=== PATIENT | female | born 1980 | race Caucasian/White ===

== ENCOUNTER 2016-12-06 10:21 | Emergency (ER) | payer MEDICAID ==
[~2016-12-06] VITALS: Ht 157.5 cm; Wt 89.9 kg
[~2016-12-06 10:21] MED LIST: FAMO20TA18; GLYB2.5T2 PO; ONDA8TAB83 PO; PREN1TAB49 PO
[2016-12-06 10:23] VITALS: Ht 157.5 cm; Wt 89.9 kg
[2016-12-06] MEDS ORDERED: ONDANSETRON (ODT) 4 MG TAB ODT STA (13:19)
--- NOTE | 2016-12-06 13:33 | ERD ---
ER Documentation Chief Complaint Date/Time DATE: 12/06/16 TIME: 13:28 Chief Complaint 7 WEEKS WITH VOMITING HPI 35 yo female comes in with nausea and vomiting one and off 1 week. Patient who is 2 last menstrual period was on October 18, 2016 comes in complaining of intermittent nausea vomiting for the past week. She reports up to 3-4 episodes of nonbloody nonbilious emesis. She denies any fever, chills, diarrhea. She denies pelvic pain, vaginal bleeding or flank pain. ROS All systems reviewed and are negative except as per history of present illness. Medications Home Meds Active Scripts Cephalexin* (Keflex*) 500 Mg Capsule, 500 MG PO TID for 7 Days, CAP Prov:YOHANNES MEZA PA-C 12/06/16 Metoclopramide* (Reglan*) 10 Mg Tablet, 10 MG PO Q6 Y for NAUSEA AND/OR VOMITING , #10 TAB Prov:YOHANNES MEZA PA-C 12/06/16 Reported Medications Glyburide* (Glyburide*) 2.5 Mg Tablet, 2.5 MG PO PM 05/22/12 Vits W-Ca,Fe,Fa(<1MG) () 1 Tab Tablet, 1 TAB PO 01/17/12 Famotidine* (Famotidine*) 20 Mg Tablet 10/29/11 Ondansetron Hcl* (Ondansetron Hcl*) 8 Mg Tablet, 8 MG PO Q6, 0 Refills 10/29/11 Allergies Allergies: Coded Allergies: No Known Allergy (Unverified , 05/22/12) PMhx/Soc Medical and Surgical Hx: pt denies Medical Hx, pt denies Surgical Hx History of Surgery: No Anesthesia Reaction: No Hx Neurological Disorder: No Hx Respiratory Disorders: No Hx Cardiac Disorders: No Hx Psychiatric Problems: No Hx Miscellaneous Medical Probl: No Hx Alcohol Use: No Hx Substance Use: No Hx Tobacco Use: No Smoking Status: Never smoker Physical Exam Vitals see nursing notes Physical Exam General: Well-developed, well-nourished. The patient appears in no acute distress. HEENT: Head is normocephalic, atraumatic. No scleral icterus. Pupils are equal , round, and reactive. Oral mucous membranes are moist. No pharyngeal erythema. Neck: Supple. Nontender. Lungs: Clear to auscultation. Normal air movement. Heart: Regular rate and rhythm. S1 and S2 are normal. No murmurs, gallops, or rubs. Abdomen: Soft, nontender, nondistended. Bowel sounds are normoactive. No CVA tenderness. Extremities: No clubbing or cyanosis. Normal pulses. Moving extremities x 4. No weakness. Neurologic: Alert and oriented 3. No focal deficits. Skin: Normal turgor. No rash or lesions. Results 24 hrs Laboratory Tests Test 12/06/16 13:32 White Blood Count 9.710^3/ul Red Blood Count 5.2510^6/ul Hemoglobin 14.5g/dl Hematocrit 43.6% Mean Corpuscular Volume 83.0fl Mean Corpuscular Hemoglobin 27.6pg Mean Corpuscular Hemoglobin Concent 33.3g/dl Red Cell Distribution Width 12.0% Platelet Count 51779^3/UL Mean Platelet Volume 9.5fl Neutrophils % 62.2% Lymphocytes % 29.8% Monocytes % 7.0% Eosinophils % 0.3% Basophils % 0.2% Nucleated Red Blood Cells % 0.0/100WBC Neutrophils # 6.010^3/ul Lymphocytes # 2.910^3/ul Monocytes # 0.710^3/ul Eosinophils # 0.010^3/ul Basophils # 0.010^3/ul Nucleated Red Blood Cells # 0.010^3/ul Urine Color YELLOW Urine Clarity SLIGHTLY CLOUDY Urine pH 6.0 Urine Specific [place] 1.020 Urine Ketones 3+ Urine Nitrite NEGATIVE Urine Bilirubin 1+ Urine Ictotest NEGATIVE Urine Urobilinogen 1.0 E.U./dL Urine Leukocyte Esterase 2+ Urine Microscopic RBC 2-5/HPF Urine Microscopic WBC 2-5/HPF Urine Epithelial Cells MODERATE Urine Bacteria MODERATE Urine Hemoglobin NEGATIVE Urine Glucose NEGATIVE% Urine Total Protein TRACE Sodium Level 137mmol/L Potassium Level 3.9mmol/L Chloride Level 98mmol/L Carbon Dioxide Level 27mmol/L Anion Gap 16 Blood Urea Nitrogen 16mg/dl Creatinine 0.64mg/dl Glucose Level 115mg/dl Calcium Level 10.1mg/dl Total Bilirubin 1.2mg/dl Direct Bilirubin 0.00mg/dl Indirect Bilirubin 1.2mg/dl Aspartate Amino Transf (AST/SGOT) 40IU/L Alanine Aminotransferase (ALT/SGPT) 72IU/L Alkaline Phosphatase 62IU/L Total Protein 9.0g/dl Albumin 5.1g/dl Globulin 3.90g/dl Albumin/Globulin Ratio 1.30 Beta HCG, Quantitative 35534.0mIU/ml Current Medications Medications (Trade) Dose Ordered Sig/Hao Route PRN Reason Start Time Stop Time Status Last Admin Dose Admin Ondansetron HCl 4 mg 4 mg ONCE STAT ODT 12/06/16 13:19 12/06/16 13:21 DC 12/06/16 13:28 Sodium Chloride (NS) 1,000 ml @ 1,000 mls/hr Q1H ONCE IV 12/06/16 16:00 12/06/16 16:59 DC 12/06/16 16:00 Diphenhydramine HCl (Benadryl) 25 mg ONCE ONCE IV 12/06/16 16:00 12/06/16 16:01 DC 12/06/16 16:01 Metoclopramide HCl (Reglan) 10 mg ONCE ONCE IV 12/06/16 16:00 12/06/16 16:01 DC 12/06/16 16:01 PROCEDURE: US OB. CLINICAL INDICATION: hyperemesis, size and dates TECHNIQUE: Transabdominal and transvaginal views of the pelvis were obtained. COMPARISON: No prior studies are available for comparison. FINDINGS: There is a single intrauterine gestation with a CRL measuring 0.8 cm, corresponding to a gestational age of 6 weeks and 5 days. The heart rate is noted at 125 bpm. There are hypoechoic fluid collections adjacent to the gestational sac, measuring 0.6 x 0.4 cm and 0.8 x 0.5 cm, consistent with subchorionic hemorrhage. The right ovary measures 2.9 x 2.1 x 2.8 cm. The left ovary measures 2.4 x 1.4 x 1.8 cm. No ovarian or adnexal mass lesion is seen. There is no free fluid. RPTAT: AA IMPRESSION: Single live intrauterine with an estimated gestational age of 6 weeks and 5 days, based on ultrasound measurements. Focal areas of subchorionic hemorrhage. Close follow-up is recommended. .Sandip Marcus MD, MD Date Time Electronically viewed and signed by .Sandip Marcus MD, MD on 12/06/2016 14: 10 .S/ CC: YOHANNES MEZA PA-C PROCEDURE: Right Upper Quadrant Ultrasound. CLINICAL INDICATION: Nausea, vomiting TECHNIQUE: Multiple real-time images were acquired of the patient's right upper quadrant abdomen and retroperitoneum utilizing a high resolution transducer. COMPARISON: None FINDINGS: The liver measures 13.4 cm, and demonstrates normal echogenicity. The main portal vein is patent with proper directional flow. There is no intrahepatic biliary ductal dilatation. The extrahepatic common bile duct measures 4 mm. The gallbladder is without stones, wall thickening, or pericholecystic fluid. The visualized pancreas is unremarkable. The right kidney measures 9.6 x 4.2 x 4.6 cm and demonstrates normal echotexture. There is no right renal calculus or hydronephrosis. The visualized abdominal aorta and IVC are grossly unremarkable. IMPRESSION: Unremarkable right upper quadrant abdominal ultrasound. No cholelithiasis or acute cholecystitis. Normal CBD. RPTAT: EE Physician Alcides Date Time Electronically viewed and signed by Physician Alcides on 12/06/2016 15:23 Procedures/MDM ER course: Patient was given Zofran ODT, after the gallbladder ultrasound the patient experienced nausea vomiting and therefore should an IV line was established and she was given a liter of normal saline and Reglan 10 mg IV with Benadryl 25 mg IV. MDM: 35-year-old female presents with nausea, vomiting, consistent with hyperemesis gravidarum and first trimester . This patient initially was given Zofran ODT however she had subsequently experienced one episode of emesis in the emergency department. Therefore she was given IV fluids including normal saline 1 L as well as Reglan 10 mg and Benadryl 25 mg IV. Patient's bilirubin was mildly elevated at 1.2, it was followed by a gallbladder ultrasound that does not show evidence of gallstones, or any acute hepatobiliary process. Reexamination of the patient was a normal benign abdominal examination, and she also reports that she is feeling much better at this time. Patient's labs are unremarkable, no signs of electrolyte abnormalities. Urine just showed 2+ leukocytes, given her nausea patient will be given a short course of antibiotics for a urinary tract infection. Her pelvic ultrasound shows a single live intrauterine , no adnexal masses. At this time she is feeling better, she is hemodynamically stable and is appropriate to be managed on an outpatient basis. Departure Diagnosis: Primary Impression: Hyperemesis gravidarum Additional Impression: First trimester Condition: YOHANNES Brand PA-C Dec 06, 2016 13:33 feeling better, she is hemodynamically stable and is appropriate to be managed on an outpatient basis. Departure Diagnosis: Primary Impression: Hyperemesis gravidarum Additional Impression: First trimester Condition: YOHANNES Brand PA-C Dec 06, 2016 13:33
[2016-12-06 13:41] LABS: ADD SCAN DIFF NO
[2016-12-06 13:43] LABS: BASOPHILS % 0.2 % (0.0-2.0); EOSINOPHILS % 0.3 % (0.0-7.0); HEMATOCRIT 43.6 % (37.0-47.0); HEMOGLOBIN 14.5 g/dl (12.0-16.0); LYMPHOCYTES # 2.9 10^3/ul (0.8-2.9); LYMPHOCYTES % 29.8 % (15.0-51.0); MEAN CORPUSCULAR HEMOGLOBIN 27.6 pg (29.0-33.0); MEAN CORPUSCULAR HGB CONC 33.3 g/dl (32.0-37.0); MEAN PLATELET VOLUME 9.5 fl (7.4-10.4); MONOCYTE # 0.7 10^3/ul (0.3-0.9); NEUTROPHILS % 62.2 % (39.0-77.0); PLATELET COUNT 253 10^3/UL (140-415); RED BLOOD COUNT 5.25 10^6/ul (4.20-5.40); WHITE BLOOD COUNT 9.7 10^3/ul (4.8-10.8)
[2016-12-06 13:44] LABS: ADD UMIC YES; URINE BILIRUBIN (Dip) 1+ (NEGATIVE); URINE BLOOD (Dip) NEGATIVE (NEGATIVE); URINE COLOR YELLOW (YELLOW); URINE GLUCOSE (Dip) NEGATIVE (NEGATIVE); URINE KETONES (Dip) 3+ (NEGATIVE); URINE LEUKOCYTE ESTERASE (Dip) 2+ (NEGATIVE); URINE NITRITE (Dip) NEGATIVE (NEGATIVE); URINE TOTAL PROTEIN (Dip) TRACE (NEGATIVE); URINE UROBILINOGEN (Dip) 1.0 E.U./dL (0.1-1.0)
[2016-12-06 14:05] LABS: BACTERIA,URINE MODERATE; ICTOTEST NEGATIVE (NEGATIVE)
[2016-12-06 14:10] LABS: ALBUMIN 5.1 g/dl (3.3-4.9); ALBUMIN/GLOBULIN RATIO 1.3; BILIRUBIN,INDIRECT 1.2 mg/dl (0-1.1); BILIRUBIN,TOTAL 1.2 mg/dl (0.2-1.3); CALCIUM 10.1 mg/dl (8.4-10.2); CREATININE 0.64 mg/dl (0.44-1.00); POTASSIUM 3.9 mmol/L (3.5-5.1)
--- NOTE | 2016-12-06 14:11 | RADRPT ---
PROCEDURE: US OB. CLINICAL INDICATION: hyperemesis, size and dates TECHNIQUE: Transabdominal and transvaginal views of the pelvis were obtained. COMPARISON: No prior studies are available for comparison. FINDINGS: There is a single intrauterine gestation with a CRL measuring 0.8 cm, corresponding to a gestational age of 6 weeks and 5 days. The heart rate is noted at 125 bpm. There are hypoechoic fluid collections adjacent to the gestational sac, measuring 0.6 x 0.4 cm and 0.8 x 0.5 cm, consistent with subchorionic hemorrhage. The right ovary measures 2.9 x 2.1 x 2.8 cm. The left ovary measures 2.4 x 1.4 x 1.8 cm. No ovarian or adnexal mass lesion is seen. There is no free fluid. RPTAT: AA IMPRESSION: Single live intrauterine with an estimated gestational age of 6 weeks and 5 days, based on ultrasound measurements. Focal areas of subchorionic hemorrhage. Close follow-up is recommended. .Sandip Marcus MD, MD Date Time Electronically viewed and signed by .Sandip Marcus MD, on 12/06/2016 14:10 .S/
--- NOTE | 2016-12-06 15:24 | RADRPT ---
PROCEDURE: Right Upper Quadrant Ultrasound. CLINICAL INDICATION: Nausea, vomiting TECHNIQUE: Multiple real-time images were acquired of the patient's right upper quadrant abdomen a nd retroperitoneum utilizing a high resolution transducer. COMPARISON: None FINDINGS: The liver measures 13.4 cm, and demonstrates normal echogenicity. The main portal vein is patent wit h proper directional flow. There is no intrahepatic biliary ductal dilatation. The extrahepatic comm on bile duct measures 4 mm. The gallbladder is without stones, wall thickening, or pericholecystic fluid. The visualized pancreas is unremarkable. The right kidney measures 9.6 x 4.2 x 4.6 cm and demonstrates normal echotexture. There is no right renal calculus or hydronephrosis. The visualized abdominal aorta and IVC are grossly unremarkable. IMPRESSION: Unremarkable right upper quadrant abdominal ultrasound. No cholelithiasis or acute cholecystitis. Normal CBD. RPTAT: EE Physician Alcides Date Time Electronically viewed and signed by Physician Alcides on 12/06/2016 15:23 /
[2016-12-06] MEDS ORDERED: SOD CHLORIDE 0.9% 1,000 ML IV ONE (16:00)
[2016-12-06] MEDS ORDERED: METOCLOPRAMIDE 10 MG INJ IV ONE (16:00)
[2016-12-06] MEDS ORDERED: DIPHENHYDRAMINE 50 MG INJ IV ONE (16:00)
[2016-12-06] MEDS ORDERED: CEPH-443 PO (16:30)
[2016-12-06] MEDS ORDERED: METO10TA92 PO (16:30)
[2016-12-06 17:21] VITALS: BP 127/65; PULSE 75; RESP 19; TEMP 98.6
== END 2016-12-06 17:23 | disposition home or self-care (01) ==
LOC: FTE 10:21
DX: O21.0 Mild hyperemesis gravidarum (principal); Z3A.01 Less than 8 weeks gestation of pregnancy
CPT/HCPCS: 76705; 76801; 76817; 80053; 81001; 84702; 85025; 86900; 86901; J1200; J2765; J7030; Z7610; 36415; 81003; 96374; 96375

== ENCOUNTER 2017-03-01 17:58 | Emergency (ER) | payer MEDICAID ==
[~2017-03-01] VITALS: Ht 157.5 cm; Wt 92.5 kg
[~2017-03-01 17:58] MED LIST changes: +CEPH-443 PO; +METO10TA92 PO
[2017-03-01 18:00] VITALS: Ht 157.5 cm; Wt 92.5 kg
[2017-03-01 18:50] LABS: ADD UMIC NO; UR ASCORBIC ACID NEGATIVE (NEGATIVE); UR BILIRUBIN (Dip) NEGATIVE (NEGATIVE); UR BLOOD (Dip) NEGATIVE (NEGATIVE); UR CLARITY CLEAR (CLEAR); UR COLOR YELLOW (YELLOW); UR GLUCOSE (Dip) NEGATIVE (NEGATIVE); UR KETONES (Dip) NEGATIVE (NEGATIVE); UR LEUKOCYTE ESTERASE (Dip) NEGATIVE Leu/ul (NEGATIVE); UR NITRITE (Dip) NEGATIVE (NEGATIVE); UR TOTAL PROTEIN (Dip) NEGATIVE (NEGATIVE); UR UROBILINOGEN (Dip) NEGATIVE (NEGATIVE)
[2017-03-01 19:20] LABS: BASOPHILS % 0.1 % (0.0-2.0); EOSINOPHILS # 0.1 10^3/ul (0.0-0.5); EOSINOPHILS % 1.1 % (0.0-7.0); HEMATOCRIT 35.3 % (37.0-47.0); HEMOGLOBIN 11.4 g/dl (12.0-16.0); LYMPHOCYTES # 2.8 10^3/ul (0.8-2.9); LYMPHOCYTES % 33.1 % (15.0-51.0); MEAN CORPUSCULAR HEMOGLOBIN 27.5 pg (29.0-33.0); MEAN CORPUSCULAR HGB CONC 32.3 g/dl (32.0-37.0); MEAN CORPUSCULAR VOLUME 85.1 fl (82.0-101.0); MEAN PLATELET VOLUME 10.1 fl (7.4-10.4); MONOCYTE # 0.7 10^3/ul (0.3-0.9); MONOCYTES % 8.2 % (0.0-11.0); NEUTROPHIL # 4.8 10^3/ul (1.6-7.5); NEUTROPHILS % 56.6 % (39.0-77.0); PLATELET COUNT 206 10^3/UL (140-415); RED BLOOD COUNT 4.15 10^6/ul (4.20-5.40); RED CELL DISTRIBUTION WIDTH 13.8 % (11.5-14.5); WHITE BLOOD COUNT 8.5 10^3/ul (4.8-10.8)
--- NOTE | 2017-03-01 19:49 | RADRPT ---
PROCEDURE: US OB. CLINICAL INDICATION: . Vaginal bleeding. TECHNIQUE: Multiple sonographic images of the uterus were obtained. The images were revi ewed on a PACS workstation. COMPARISON: No prior studies are available for comparison. FINDINGS: There is a single live intrauterine gestation. heart rate is 144 beats per minute. Measurements were made in order to determine age. The results are as follows: BPD = 4.55 cm. HC = 16.57 cm. AC = 13.42 cm. FL = 2.73 cm. Estimated weight is 255 +/- 38 grams. LMP growth percentile is 24 %. Maximum vertical pocket of amniotic fluid is 4.6 cm. Menstrual age by ultrasound dates is 19 weeks 0 days. The estimated date of delivery is 07/26/2017. Position is cephalic and placenta is anterior grade 0. There is no evidence for an abruption or plac enta previa. IMPRESSION: 1. Single live intrauterine gestation of 19 weeks 0 days menstrual age by ultrasound dates. 2. The estimated date of delivery is 07/26/2017. 3. Normal anterior placenta with no abruption or previa. RPTAT: QQ .Balaji Cruz MD, Date Time Electronically viewed and signed by .Balaji Cruz MD, on 03/01/2017 19:49 .R/
[2017-03-01 21:48] VITALS: BP 120/81; PULSE 89; RESP 16; TEMP 98
--- NOTE | 2017-03-01 23:10 | ERD ---
ER Documentation Chief Complaint Date/Time DATE: 03/01/17 TIME: 23:02 Chief Complaint VAG BLEED , ONSET TODAY , 19 WEEKS 2 DAYS PREG , LMP 11/18/16 HPI 36 year old female patient who is who presents to the ED complaining of slight vaginal bleeding that started this morning. States that when she wipes, she sees some slight vaginal bleeding however has not had to change any pads. Patient's LMP is 10/18/16. Denies dysuria, urgency, frequency, flank pain, abdominal pain, nausea, vomiting. Denies any chest pain, shortness of breath. Reports that her NEEDLE LOOM OPERATOR is Dr. Garvin. Denies any abdominal or pelvic pain. ROS All systems reviewed and are negative except as per history of present illness. Medications Home Meds Active Scripts Cephalexin* (Keflex*) 500 Mg Capsule, 500 MG PO TID for 7 Days, CAP Prov:YOHANNES MEZA PA-C 12/06/16 Metoclopramide* (Reglan*) 10 Mg Tablet, 10 MG PO Q6 Y for NAUSEA AND/OR VOMITING , #10 TAB Prov:YOHANNES MEZA PA-C 12/06/16 Reported Medications Glyburide* (Glyburide*) 2.5 Mg Tablet, 2.5 MG PO PM 05/22/12 Vits W-Ca,Fe,Fa(<1MG) () 1 Tab Tablet, 1 TAB PO 01/17/12 Famotidine* (Famotidine*) 20 Mg Tablet 10/29/11 Ondansetron Hcl* (Ondansetron Hcl*) 8 Mg Tablet, 8 MG PO Q6, 0 Refills 10/29/11 Allergies Allergies: Coded Allergies: No Known Allergy (Unverified , 03/01/17) PMhx/Soc Medical and Surgical Hx: pt denies Medical Hx, pt denies Surgical Hx History of Surgery: No Anesthesia Reaction: No Hx Neurological Disorder: No Hx Respiratory Disorders: No Hx Cardiac Disorders: No Hx Psychiatric Problems: No Hx Miscellaneous Medical Probl: No Hx Alcohol Use: No Hx Substance Use: No Hx Tobacco Use: No Smoking Status: Never smoker Physical Exam Vitals Vital Signs Date Time Temp Pulse Resp B/P Pulse Ox O2 Delivery O2 Flow Rate FiO2 03/01/17 21:48 98.0 89 16 120/81 98 Room Air 03/01/17 18:00 98.1 85 18 134/72 98 Physical Exam Const: [id number], well-nourished. In no acute distress. Head: Atraumatic, normocephalic Eyes: Normal Conjunctiva without injection. No purulent discharge. ENT: Normal external ear, nose. Moist oropharynx without tonsillar exudates. Non -erythematous pharynx. Uvula midline. No drooling. No trismus. Neck: No cervical midline tenderness. Full range of motion. No meningismus. No cervical lymphadenopathy. No JVD. Resp: Clear to auscultation bilaterally. No wheezing, rhonchi, rales, or crackles. No accessory muscle use. No retractions. Cardio: Regular rate and rhythm. No murmurs, rubs or gallops. Abd: Soft, nontender, non distended. Normal bowel sounds. No palpable masses. No rebound tenderness. No guarding. Negative McBurney's point. Negative psoas sign. Negative obturator sign. Skin: No petechiae or rashes Back: No midline tenderness. No CVA tenderness. Ext: No cyanosis, or edema. Neur: Awake and alert. Normal gait. Normal coordination. Psych: Normal Mood and Affect Results 24 hrs Laboratory Tests Test 03/01/17 18:39 03/01/17 18:40 White Blood Count 8.510^3/ul Red Blood Count 4.1510^6/ul Hemoglobin 11.4g/dl Hematocrit 35.3% Mean Corpuscular Volume 85.1fl Mean Corpuscular Hemoglobin 27.5pg Mean Corpuscular Hemoglobin Concent 32.3g/dl Red Cell Distribution Width 13.8% Platelet Count 05704^3/UL Mean Platelet Volume 10.1fl Neutrophils % 56.6% Lymphocytes % 33.1% Monocytes % 8.2% Eosinophils % 1.1% Basophils % 0.1% Nucleated Red Blood Cells % 0.0/100WBC Neutrophils # 4.810^3/ul Lymphocytes # 2.810^3/ul Monocytes # 0.710^3/ul Eosinophils # 0.110^3/ul Basophils # 0.010^3/ul Nucleated Red Blood Cells # 0.010^3/ul Beta HCG, Quantitative 30537.0mIU/ml Urine Color YELLOW Urine Clarity CLEAR Urine pH 7.0 Urine Specific [place] 1.010 Urine Ketones NEGATIVEmg/dL Urine Nitrite NEGATIVEmg/dL Urine Bilirubin NEGATIVEmg/dL Urine Urobilinogen NEGATIVEmg/dL Urine Leukocyte Esterase NEGATIVELeu/ul Urine Hemoglobin NEGATIVEmg/dL Urine Glucose NEGATIVEmg/dL Urine Total Protein NEGATIVEmg/dl Procedures/MDM This is a 36-year-old female patient who is a presents the ED complaining of vaginal bleeding. Patient is afebrile and nontoxic-appearing. Patient has normal vital signs. An ultrasound, beta-hCG, CBC, type and RH, UA was ordered to evaluate patient. CBC: No evidence of severe infection. Hbg 11.4 Urine: No elevation in nitrites, leukocyte esterase, hematuria. No evidence of UTI Rh: O positive No indication for Rhogam at this time. beta Hc PROCEDURE: US OB. CLINICAL INDICATION: . Vaginal bleeding. TECHNIQUE: Multiple sonographic images of the uterus were obtained. The images were reviewed on a PACS workstation. COMPARISON: No prior studies are available for comparison. FINDINGS: There is a single live intrauterine gestation. heart rate is 144 beats per minute. Measurements were made in order to determine age. The results are as follows: BPD = 4.55 cm. HC = 16.57 cm. AC = 13.42 cm. FL = 2.73 cm. Estimated weight is 255 +/- 38 grams. LMP growth percentile is 24 %. Maximum vertical pocket of amniotic fluid is 4.6 cm. Menstrual age by ultrasound dates is 19 weeks 0 days. The estimated date of delivery is 07/26/2017. Position is cephalic and placenta is anterior grade 0. There is no evidence for an abruption or placenta previa. IMPRESSION: 1. Single live intrauterine gestation of 19 weeks 0 days menstrual age by ultrasound dates. 2. The estimated date of delivery is 07/26/2017. 3. Normal anterior placenta with no abruption or previa. Patient is 19 weeks and has a single live intrauterine gestation. Patient's bleeding symptoms have stabilized while in the department. Low suspicion for symptomatic anemia, ectopic , sepsis, PID, appendicitis, ovarian torsion, tubo-ovarian abscess, surgical abdomen, or other emergent conditions. Patient was educated that there is a risk for threatened . Patient to follow up with NEEDLE LOOM OPERATOR in 2 days for further evaluation and treatment. Patient is to return sooner to the ED for any worsening symptoms. Patient's questions were answered. Patient understood and agreed with discharge plan. Departure Diagnosis: Primary Impression: Vaginal bleeding in patient at less than 20 weeks ges... Condition: Stable Patient Instructions: : Your Second Trimester Changes, Bleeding During Early Referrals: BETTY GARVIN MD (PCP) [facility] YOU HAVE RECEIVED A MEDICAL SCREENING EXAM AND THE RESULTS INDICATE THAT YOU DO NOT HAVE A CONDITION THAT REQUIRES URGENT TREATMENT IN THE EMERGENCY DEPARTMENT. FURTHER EVALUATION AND TREATMENT OF YOUR CONDITION CAN WAIT UNTIL YOU ARE SEEN IN YOUR DOCTORS OFFICE WITHIN THE NEXT 1-2 DAYS. IT IS YOUR RESPONSIBILITY TO MAKE AN APPOINTMENT FOR FOLOW-UP CARE. IF YOU HAVE A PRIMARY DOCTOR --you should call your primary doctor and schedule an appointment IF YOU DO NOT HAVE A PRIMARY DOCTOR YOU CAN CALL OUR PHYSICIAN REFERRAL HOTLINE AT IF YOU CAN NOT AFFORD TO SEE A PHYSICIAN YOU CAN CHOSE FROM THE FOLLOWING [facility] [address] [facility] [address] [facility] [address] [facility] [address] [facility] [address] [facility] [facility]. [address] [facility] [facility] YOU HAVE RECEIVED A MEDICAL SCREENING EXAM AND THE RESULTS INDICATE THAT YOU DO NOT HAVE A CONDITION THAT REQUIRES URGENT TREATMENT IN THE EMERGENCY DEPARTMENT. FURTHER EVALUATION AND TREATMENT OF YOUR CONDITION CAN WAIT UNTIL YOU ARE SEEN IN YOUR DOCTORS OFFICE WITHIN THE NEXT 1-2 DAYS. IT IS YOUR RESPONSIBILITY TO MAKE AN APPOINTMENT FOR FOLOW-UP CARE. IF YOU HAVE A PRIMARY DOCTOR --you should call your primary doctor and schedule and appointment IF YOU DO NOT HAVE A PRIMARY DOCTOR YOU CAN CALL OUR PHYSICIAN REFERRAL HOTLINE AT . IF YOU CAN NOT AFFORD TO SEE A PHYSICIAN YOU CAN CHOSE FROM THE FOLLOWING [facility] INSTITUTIONS: [facility] [address] [place] [address] [facility] [address] [place] [address] [facility] [address] [place] [address] [facility] URGENT CARE/SPECIALTIES Additional Instructions: Llame al Obstetricia y Ginecologa tamara sherwin BETHANY PARA DENTRO DE 2-3 GALLEGOS.Dgale a la secretaria que nosotros le instruimos hacer esta bethany.Avise o llame si vasquez condicin se empeora antes de la bethany. Regresa aqui si peor o no mejor. DYLAN HELLER PA-C Mar 01, 2017 23:10 condicin se empeora antes de la bethany. Regresa aqui si peor o no mejor. DYLAN HELLER PA-C Mar 01, 2017 23:10
== END 2017-03-01 21:52 | disposition home or self-care (01) ==
LOC: FTE 17:58
DX: O20.9 Hemorrhage in early pregnancy, unspecified (principal); R10.2 Pelvic and perineal pain; Z3A.19 19 weeks gestation of pregnancy
CPT/HCPCS: 76805; 81003; 84702; 85025; 86900; 86901; Z7502

== ENCOUNTER 2017-04-15 14:10 | Outpatient (CLI) | payer MEDICAID ==
[~2017-04-15] VITALS: Ht 157.5 cm; Wt 93.2 kg
[2017-04-15] MEDS ORDERED: PRENAT PO (14:29)
[2017-04-15 14:30] VITALS: BP 119/65; PULSE 88; RESP 18; Ht 157.5 cm; Wt 93.2 kg
--- NOTE | 2017-04-15 16:41 | RADRPT ---
PROCEDURE: Limited obstetric ultrasound CLINICAL INDICATION: Pain TECHNIQUE: Multiple transverse and longitudinal grayscale images of the pelvis were obtained bahena sabdominally and transvaginally.. COMPARISON: 03/11/2017 FINDINGS: The cervix is closed with a length of 4.2 cm. There is a single viable intrauterine gestation. Cardiac activity is present with 152 beats per min clifford. There is a breech presentation. The placenta is anterior. There is no evidence for an abruption or placenta previa. RPTAT: AA IMPRESSION: Cervix length measures 4.2 cm. .Sandip Marcus MD, Date Time Electronically viewed and signed by .Sandip Marcus MD, on 04/15/2017 16:41 .S/
[2017-04-15 17:11] LABS: ADD UMIC NO; UR ASCORBIC ACID NEGATIVE (NEGATIVE); UR BACTERIA MODERATE /HPF (NONE SEEN); UR BILIRUBIN (Dip) NEGATIVE (NEGATIVE); UR BLOOD (Dip) NEGATIVE (NEGATIVE); UR CLARITY SLIGHTLY CLOUDY (CLEAR); UR COLOR YELLOW (YELLOW); UR GLUCOSE (Dip) NEGATIVE (NEGATIVE); UR KETONES (Dip) 1+ mg/dL (NEGATIVE); UR LEUKOCYTE ESTERASE (Dip) NEGATIVE Leu/ul (NEGATIVE); UR NITRITE (Dip) NEGATIVE (NEGATIVE); UR RBC 1 /HPF (0-5); UR SPECIFIC GRAVITY (Dip) 1.006 (1.003-1.030); UR SQUAMOUS EPITHELIAL CELL FEW /HPF (FEW); UR TOTAL PROTEIN (Dip) NEGATIVE (NEGATIVE); UR UROBILINOGEN (Dip) NEGATIVE (NEGATIVE)
--- NOTE | 2017-04-15 17:44 | TRIAGE ---
OB Triage Datetime Report Generated by CPN: 04/15/2017 17:43 Datetime: 04/15/2017 16:12 Stage of : OB Triage Maternal Assessment Level of Consciousness: Fully Conscious Labor Evaluation Frequency: NONE Monitor Mode: External Resting Tone Study [place]: Relaxed Heart Rate FHR Baseline Rate: 145 Monitor Mode: External US Variability: Moderate 6-25 bpm Accelerations: 15X15 Decelerations: None Pain Assessment Pain Scale: 0 Pain Goal: 3 Membrane Status: Intact Vaginal Bleeding: None Datetime: 04/15/2017 15:37 Vaginal Exam Dilatation (cms): 0.0 Exam By: FOROOHAR Datetime: 04/15/2017 15:20 Stage of : OB Triage Maternal Assessment Level of Consciousness: Fully Conscious Labor Evaluation Frequency: NONE Monitor Mode: External Resting Tone Study [place]: Relaxed Heart Rate FHR Baseline Rate: 145 Monitor Mode: External US Variability: Moderate 6-25 bpm Accelerations: 15X15 Decelerations: None Pain Assessment Pain Scale: 0 Pain Goal: 3 Membrane Status: Intact Vaginal Bleeding: None Datetime: 04/15/2017 14:26 Assessment Type: Triage Maternal Assessment Level of Consciousness: Fully Conscious DTR's/Clonus: DTRs 2+; No Clonus Headache: Denies Blurred Vision: No Respiratory Effort: Unlabored; Regular Rhythm; Equal Expansion Breath Sounds, Left: Clear and Equal Breath Sounds, Right: Clear and Equal Nausea/Vomiting: Denies RUQ Epigastric Pain: Denies Lower Extremities Edema: None Degree: None Upper Extremities Edema: None Degree: None Facial Edema: None Fall Risk Assessment History of Falling: (0) No Secondary Diagnosis: (0) No Ambulatory Aid: (0) Bedrest/Nurse Assist IV Therapy: (0) No Gait: (0) Normal/Bedrest/Immobile Mental Status: (0) Oriented to Own Ability Fall Score: 0 Fall Risk Score Definition: No Risk: No action required Datetime: 04/15/2017 14:25 EGA: 25.5 Datetime: 04/15/2017 14:21 Time of Arrival: 04/15/2017 13:56 Arrived By: Wheelchair Arrived From: Home Chief Complaint: PT HERE C/O SPOTTING Movement: Present Contractions: Denies/Absent Rupture of Membranes: Denies Vaginal Bleeding: Scant Vaginal Discharge: Denies Recent Sexual Intercouse: Denies Abdominal Trauma: Not Applicable Patient Complaints: None Time Provider Notified: 04/15/2017 15:30 Provider Notified: FOROOHAR Initial Plan: CVL/PLACENTA/UA Datetime: 04/15/2017 14:17 Monitor Mode: External Monitor Mode: External US
--- NOTE | 2017-04-15 17:53 | CONS ---
Date/Time of Note Date/Time of Note DATE: 04/15/17 TIME: 17:45 Consultation Date/Type/Reason Admit Date/Time April 15, 2017 OB triage consult This patient is a 36 years old 2 para 1 with estimated date of confinement of July 24, 2017 which makes her 25 weeks and 5 days now. She came to triage clinic complaining of vaginal spotting since morning. On examination she is somewhat overweight patient whose weight is 93.2 kg Her general vital signs appears to be normal with blood pressure of 119/65 pulse rate 88,, respiration 18, temperature 98.7, and oxygen saturation of 99% at room temperature. Her abdomen is soft we do not feel very many contractions heart tone is normal. On pelvic examination cervix is closed thick and posterior no evidence of a blood inside the vagina she does have some hemorrhoidal tags around the anus which could have been caused some vaginal spotting that she is currently claiming. Laboratory Tests Test 04/15/17 14:10 Urine Color YELLOW Urine Clarity SLIGHTLY CLOUDY Urine pH 5.0 Urine Specific [place] 1.006 Urine Ketones 1+mg/dL Urine Nitrite NEGATIVEmg/dL Urine Bilirubin NEGATIVEmg/dL Urine Urobilinogen NEGATIVEmg/dL Urine Leukocyte Esterase NEGATIVELeu/ul Urine Microscopic RBC 1/HPF Urine Microscopic WBC 3/HPF Urine Squamous Epithelial Cells FEW/HPF Urine Bacteria MODERATE/HPF Urine Hemoglobin NEGATIVEmg/dL Urine Glucose NEGATIVEmg/dL Urine Total Protein NEGATIVEmg/dl Constitutional: No chills, No diaphoresis, No disoriented, No febrile, No improved, No no complaints, No other, No poor po, No requiring IVF, No requiring O2 Eyes: No discharge, No no complaints, No other, No pain, No redness, No visual change ENT: No bleeding, No congestion, No discharge, No dysphagia, No no complaints, No other, No pain, No sore throat Respiratory: No cough, No no complaints, No other, No pain, No pleuritic pain, No shortness of breath, No sputum, No wheezing Cardiovascular: No chest pain, No edema, No lightheadedness, No no complaints, No orthopenea, No other, No palpitations, No paroxysmal nocturnal dyspnea Gastrointestinal: No blood, No constipation, No decreased appetite, No diarrhea , No flatus, No nausea, No no complaints, No other, No pain, No passing stool, No vomiting Genitourinary: other (On pelvic examination as I mentioned the cervix is closed no evidence of vaginal bleeding), No bleeding, No discharge, No dysuria, No flank pain, No hematuria, No no complaints Additional Comments On ultrasound study the report is single live intrauterine gestation with in cephalic presentation with cardiac rate of 146/min the placenta located anteriorly . Amniotic fluid index is 13.2 cm and the biophysical profile is 8/8. Her cervix was closed with a length of 4.2 cm fetus was in breech presentation. With these negative finding the patient was advised regarding her condition she was discharged home to be followed in in her OB clinic. On to return if any real vaginal bleeding or any sign of labor. Social History Smoking Status: Never smoker Exam/Review of Systems Vital Signs Vitals Vital Signs Date Time Temp Pulse Resp B/P Pulse Ox O2 Delivery O2 Flow Rate FiO2 04/15/17 14:30 98.7 88 18 119/65 99 Room Air Results Results 24 hrs Laboratory Tests Test 04/15/17 14:10 Urine Color YELLOW Urine Clarity SLIGHTLY CLOUDY A Urine pH 5.0 Urine Specific Hale 1.006 Urine Ketones 1+ H Urine Nitrite NEGATIVE Urine Bilirubin NEGATIVE Urine Urobilinogen NEGATIVE Urine Leukocyte Esterase NEGATIVE Urine Microscopic RBC 1 Urine Microscopic WBC 3 Urine Squamous Epithelial Cells FEW Urine Bacteria MODERATE Urine Hemoglobin NEGATIVE Urine Glucose NEGATIVE Urine Total Protein NEGATIVE REJI ARMIJO MD Apr 15, 2017 17:53
== END 2017-04-15 17:55 | disposition home or self-care (01) ==
LOC: OBT 14:10 → L-D 14:10 → OBT 17:55
PROVIDERS: ATTEND Obstetrics & Gynecology
DX: O20.8 Other hemorrhage in early pregnancy (principal); O09.523 Supervision of elderly multigravida, third trimester; Z3A.25 25 weeks gestation of pregnancy
CPT/HCPCS: 76817; 81001; Z7500; 81003; G0463

== ENCOUNTER 2017-05-12 15:48 | Outpatient (CLI) | payer MEDICAID ==
[~2017-05-12] VITALS: Ht 154.9 cm; Wt 96.6 kg
[~2017-05-12 15:48] MED LIST changes: -CEPH-443 PO; -FAMO20TA18; -GLYB2.5T2 PO; -METO10TA92 PO; -ONDA8TAB83 PO; -PREN1TAB49 PO; +PRENAT PO
[2017-05-12 16:11] VITALS: BP 116/55; PULSE 90; Ht 154.9 cm; Wt 96.6 kg
--- NOTE | 2017-05-12 17:08 | RADRPT ---
PROCEDURE: US biophysical profile. CLINICAL INDICATION: Decreased motion. TECHNIQUE: Multiple sonographic images of the uterus were obtained. The images were revi ewed on a PACS workstation. COMPARISON: No prior studies are available for comparison. FINDINGS: There is a single live intrauterine gestation. heart rate is 150 beats per minute. The position is breech. The placenta is anterior grade 1 with no abruption or previa. The LEILANI is 10.0 cm. (Normal = 5-20 cm.) Breathing Movement: 2 Gross Body Movement: 2 Tone: 2 Qualitative Amniotic Fluid Volume: 2 TOTAL: 8 IMPRESSION: 1. The biophysical score is 8/8. RPTAT: QQ .Balaji Cruz MD, MD Date Time Electronically viewed and signed by .Balaji Cruz MD, on 05/12/2017 17:08 .R/
--- NOTE | 2017-05-12 18:53 | QN ---
Documentation Comment iupo 29 weeks DFM vss us wnl nst raeatice a/p iup 29 weeks DFM resolved dc home ANA ZUNIGA MD May 12, 2017 18:53
== END 2017-05-12 18:15 | disposition home or self-care (01) ==
LOC: OBT 15:48 → L-D 15:50 → OBT 18:15
PROVIDERS: ATTEND Obstetrics & Gynecology
DX: O36.8130 Decreased fetal movements, third trimester, not applicable or unspecified (principal); Z3A.29 29 weeks gestation of pregnancy
CPT/HCPCS: 76818; Z7500; G0463

== ENCOUNTER 2017-06-02 15:37 | Outpatient (CLI) | payer MEDICAID ==
[~2017-06-02] VITALS: Ht 157.5 cm; Wt 97.3 kg
[2017-06-02 16:28] VITALS: Ht 157.5 cm; Wt 97.3 kg
[2017-06-02 16:30] VITALS: BP 116/66; PULSE 106; RESP 16
--- NOTE | 2017-06-02 18:24 | RADRPT ---
PROCEDURE: US OB. CLINICAL INDICATION: SROM , pain TECHNIQUE: Transabdominal views of the pelvis are available for review. COMPARISON: 05/12 FINDINGS: There is a single intrauterine gestation in a vertex position. The heart rate is noted at 146 bpm. The placenta is anterior. The LEILANI measures 15 cm. RPTAT: AA IMPRESSION: Normal LEILANI. .Sandip Marcus MD, MD Date Time Electronically viewed and signed by .Sandip Marcus MD, on 06/02/2017 18:23 .S/
--- NOTE | 2017-06-02 18:58 | QN ---
Documentation Comment iup 32 weeks co of lof vss exam wnl ROM negative LEILANI wnl a/p iup 32 weeks false labor ANA ZUNIGA MD Jun 02, 2017 18:58
== END 2017-06-02 19:10 | disposition home or self-care (01) ==
LOC: OBT 15:37 → OBG 15:42 → OBT 19:10
PROVIDERS: ATTEND Obstetrics & Gynecology
DX: O26.893 Other specified pregnancy related conditions, third trimester (principal); O09.523 Supervision of elderly multigravida, third trimester; Z3A.32 32 weeks gestation of pregnancy
CPT/HCPCS: 76815; 84112; Z7500; G0463

== ENCOUNTER 2017-07-21 23:50 | Outpatient (CLI) | payer MEDICAID ==
[~2017-07-21] VITALS: Ht 154.9 cm; Wt 102.4 kg
--- NOTE | 2017-07-22 01:59 | RADRPT ---
PROCEDURE: OB ultrasound for biophysical profile CLINICAL INDICATION: Contractions. TECHNIQUE: Multiple sonographic images of the gravid uterus performed. The images were reviewed on a PACS workstation. COMPARISON: 05/12/2017 FINDINGS: A single live intrauterine is identified with heart rate of 159 bpm. Fet us is in a cephalic presentation. Placenta is located anterior. Biophysical profile: breathing movement = 2/2 tone = 2/2 motion = 2/2 LEILANI = 2/2 LEILANI = 8.2 cm. IMPRESSION: 1. Single live intrauterine gestation. 2. Biophysical profile = 8/8. 3. LEILANI = 8.2 cm. RPTAT: HMVK .Zac Elliott MD, Date Time Electronically viewed and signed by .Zac Elliott MD, on 07/22/2017 01:58 .K/
[2017-07-22 02:47] VITALS: BP 121/73; PULSE 80; RESP 16; Ht 154.9 cm; Wt 102.4 kg
--- NOTE | 2017-07-22 03:03 | TRIAGE ---
OB Triage Datetime Report Generated by CPN: 07/22/2017 03:02 Datetime: 07/22/2017 03:00 Stage of : OB Triage Datetime: 07/22/2017 02:49 Contraction Comments: TOCO REMOVED Comments: US REMOVED Datetime: 07/22/2017 02:48 Stage of : OB Triage Labor Evaluation Frequency: X2 IN 50 MIN Monitor Mode: External Duration (sec)2399: 60-120 Quality: Mild Pattern: Normal: <= 5 Contractions in 10 Minutes Resting Tone [place]: Relaxed Heart Rate FHR Baseline Rate: 155 Monitor Mode: External US Variability: Moderate 6-25 bpm Accelerations: 15X15 Decelerations: None Datetime: 07/22/2017 02:00 Stage of : OB Triage Labor Evaluation Frequency: X2 IN ONE HOUR Monitor Mode: External Duration (sec)2399: 60-100 Quality: Mild Pattern: Normal: <= 5 Contractions in 10 Minutes Resting Tone [place]: Relaxed Heart Rate FHR Baseline Rate: 155 Monitor Mode: External US Variability: Moderate 6-25 bpm Accelerations: 15X15 Decelerations: None Pain Assessment Pain Scale: 4 Pain Presence: Intermittent Pain Type: Contraction Pain Location: Abdomen Pain Goal: 3 Datetime: 07/22/2017 01:00 Stage of : OB Triage Labor Evaluation Frequency: X4 IN ONE HOUR Monitor Mode: External Duration (sec)2399: 90-120 Quality: Mild Pattern: Normal: <= 5 Contractions in 10 Minutes Resting Tone [place]: Relaxed Heart Rate FHR Baseline Rate: 150 Monitor Mode: External US Variability: Moderate 6-25 bpm Accelerations: 15X15 Decelerations: None Pain Assessment Pain Scale: 4 Pain Presence: Intermittent Pain Type: Contraction Pain Location: Abdomen Pain Goal: 3 Pain Assessment Comments: PT STATES SHE DOES NOT FEEL HER UC'S MUCH ANY MORE Datetime: 07/22/2017 00:56 Stage of : OB Triage Datetime: 07/22/2017 00:11 Vaginal Exam Dilatation (cms): 1.5 Effacement (%): 50 Station: -3 Datetime: 07/22/2017 00:02 Assessment Type: Triage Maternal Assessment Level of Consciousness: Fully Conscious DTR's/Clonus: DTRs 2+; No Clonus Headache: Denies Blurred Vision: No Respiratory Effort: Unlabored; Regular Rhythm; Equal Expansion Breath Sounds, Left: Clear and Equal Breath Sounds, Right: Clear and Equal Nausea/Vomiting: Denies RUQ Epigastric Pain: Denies Lower Extremities Edema: Bilateral Lower Extremities Degree: 1+ Upper Extremities Edema: None Degree: None Facial Edema: None Fall Risk Assessment History of Falling: (0) No Secondary Diagnosis: (0) No Ambulatory Aid: (0) Bedrest/Nurse Assist IV Therapy: (0) No Gait: (0) Normal/Bedrest/Immobile Mental Status: (0) Oriented to Own Ability Fall Score: 0 Fall Risk Score Definition: No Risk: No action required Datetime: 07/22/2017 00:01 Time of Arrival: 07/21/2017 23:45 EGA: 39.4 Arrived By: Wheelchair Arrived From: Emergency Dept Chief Complaint: UC'S Movement: Present Contractions: Irregular Time Contractions Began: 07/21/2017 22:45 Contractions: Q 5 MIN PER PT Rupture of Membranes: Denies Vaginal Bleeding: None Vaginal Discharge: Denies Recent Sexual Intercouse: Denies Abdominal Trauma: Not Applicable Patient Complaints: Contractions Time Provider Notified: 07/22/2017 00:25 Provider Notified: JULIANN Initial Plan: efm Temperature Route: Oral Datetime: 07/21/2017 23:59 Contraction Comments: TOCO APPLIED Comments: US APPLIED Datetime: 06/02/2017 18:50 Labor Evaluation Frequency: 0 Monitor Mode: External Duration (sec)2399: 0 Pattern: Normal: <= 5 Contractions in 10 Minutes Resting Tone [place]: Relaxed Heart Rate FHR Baseline Rate: 140 Monitor Mode: External US FHR Baseline Changes: No Baseline Change Variability: Moderate 6-25 bpm Accelerations: 15X15 Decelerations: None Category: Category I Datetime: 06/02/2017 18:48 Labor Evaluation Frequency: 0 Monitor Mode: External Duration (sec)2399: 0 Pattern: Normal: <= 5 Contractions in 10 Minutes Resting Tone [place]: Relaxed Heart Rate FHR Baseline Rate: 140 Monitor Mode: External US FHR Baseline Changes: No Baseline Change Variability: Moderate 6-25 bpm Accelerations: 15X15 Decelerations: None Category: Category I Datetime: 06/02/2017 17:58 Labor Evaluation Frequency: 0 Monitor Mode: External Duration (sec)2399: 0 Pattern: Normal: <= 5 Contractions in 10 Minutes Resting Tone [place]: Relaxed Heart Rate FHR Baseline Rate: 150 Monitor Mode: External US FHR Baseline Changes: No Baseline Change Variability: Moderate 6-25 bpm Accelerations: 15X15 Decelerations: None Category: Category I Datetime: 06/02/2017 17:01 Time of Arrival: 06/02/2017 15:48 EGA: 32.4 Arrived By: Wheelchair [facility] From: [facility] Chief Complaint: LEAKING FLUID Movement: Present Contractions: Denies/Absent Rupture of Membranes: Unsure Vaginal Bleeding: None Vaginal Discharge: Denies Recent Sexual Intercouse: Denies Abdominal Trauma: Not Applicable Patient Complaints: Other Time Provider Notified: 06/02/2017 16:45 Provider Notified: JULIANN Initial Plan: NST, ROM PLUS Datetime: 06/02/2017 16:58 Labor Evaluation Frequency: 0 Monitor Mode: External Duration (sec)2399: 0 Pattern: Normal: <= 5 Contractions in 10 Minutes Resting Tone [place]: Relaxed Contraction Comments: DENIES FEELING ANY UC'S Heart Rate FHR Baseline Rate: 150 Monitor Mode: External US FHR Baseline Changes: No Baseline Change Variability: Moderate 6-25 bpm Accelerations: 15X15 Decelerations: None Category: Category I Datetime: 06/02/2017 16:33 Stage of : OB Triage Assessment Type: Triage Maternal Assessment Level of Consciousness: Fully Conscious DTR's/Clonus: DTRs 2+; No Clonus Headache: Denies Blurred Vision: No Respiratory Effort: Unlabored; Regular Rhythm; Equal Expansion Breath Sounds, Left: Clear and Equal Breath Sounds, Right: Clear and Equal Nausea/Vomiting: Denies RUQ Epigastric Pain: Denies Upper Extremities Edema: None Degree: None Facial Edema: None Temperature Route: Axillary Fall Risk Assessment History of Falling: (0) No Secondary Diagnosis: (0) No Ambulatory Aid: (0) Bedrest/Nurse Assist IV Therapy: (0) No Gait: (0) Normal/Bedrest/Immobile Mental Status: (0) Oriented to Own Ability Fall Score: 0 Fall Risk Score Definition: No Risk: No action required Datetime: 05/12/2017 17:57 Stage of : OB Triage Datetime: 05/12/2017 16:49 Labor Evaluation Frequency: 0 Monitor Mode: External Pattern: Normal: <= 5 Contractions in 10 Minutes Resting Tone [place]: Relaxed Heart Rate FHR Baseline Rate: 145 Monitor Mode: External US Variability: Moderate 6-25 bpm Accelerations: 10X10 Decelerations: None Category: Category I Pain Assessment Pain Scale: 0 Pain Presence: None/Denies Pain Type: N/A Pain Goal: 3 Pain Relief Measures: Comfort Measures Datetime: 05/12/2017 16:15 Stage of : OB Triage Datetime: 05/12/2017 16:07 Stage of : OB Triage Assessment Type: Triage Maternal Assessment Level of Consciousness: Fully Conscious DTR's/Clonus: DTRs 2+; No Clonus Headache: Denies Blurred Vision: No Respiratory Effort: Unlabored; Regular Rhythm; Equal Expansion Breath Sounds, Left: Clear and Equal Breath Sounds, Right: Clear and Equal Nausea/Vomiting: Denies RUQ Epigastric Pain: Denies Facial Edema: None Temperature Route: Axillary Fall Risk Assessment History of Falling: (0) No Secondary Diagnosis: (0) No Ambulatory Aid: (0) Bedrest/Nurse Assist IV Therapy: (0) No Gait: (0) Normal/Bedrest/Immobile Mental Status: (0) Oriented to Own Ability Fall Score: 0 Fall Risk Score Definition: No Risk: No action required Labor Evaluation Frequency: 0 Monitor Mode: External Resting Tone [place]: Relaxed Heart Rate FHR Baseline Rate: 150 Monitor Mode: External US Variability: Moderate 6-25 bpm Accelerations: 10X10 Decelerations: None Category: Category I Pain Assessment Pain Scale: 0 Pain Presence: None/Denies Pain Type: N/A Pain Goal: 3 Pain Relief Measures: Comfort Measures Datetime: 05/12/2017 16:06 Time of Arrival: 05/12/2017 15:42 EGA: 29.4 Arrived By: Ambulatory Arrived From: Home Chief Complaint: DFM X 2 DAYS, DENIES UC'S, BLEEDING OR LEAKING Movement: Decreased Contractions: Denies/Absent Rupture of Membranes: Denies Vaginal Bleeding: None Vaginal Discharge: Denies Recent Sexual Intercouse: Denies Abdominal Trauma: Not Applicable Patient Complaints: None Time Provider Notified: 05/12/2017 16:15 Provider Notified: JULIANN Initial Plan: MONITOR, BPP/LEILANI Datetime: 04/15/2017 14:26 Fall Score: 0 Fall Risk Score Definition: No Risk: No action required Datetime: 04/15/2017 14:25 EGA: 25.5
--- NOTE | 2017-07-22 03:50 | PN ---
Triage Information Date/Time Reason for visit: Uterine contractions Weeks of Gestation 39 5/7 /Para Diabetes: none Hypertention: none Additional information 36 Year-old with SIUP at 39 5/7 weeks presents with a chief complaint of ucs. She has been receiving her care with Dr. Garvin. She states good movement. She denies nausea, vomiting, shortness of breath, chest pain, and abdominal pain between contractions, headache, visual changes, vaginal bleeding or LOF. Objective Vital Signs Date Time Temp Pulse Resp B/P Pulse Ox O2 Delivery O2 Flow Rate FiO2 07/22/17 02:47 98.0 80 16 121/73 Room Air Heart Rate: 140's Contractions: 6-10 Minutes Apart Exam General: Patient appears well, alert and oriented, NAD, appropriate mood and affect ABD: gravid, soft, non-tender. Back: No CVA tenderness (B/L) LE: No clubbing, cyanosis, edema, thigh or calf tenderness bilaterally FHT: 140 bpm , moderate variability with acceleration, no deceleration-category I Contractions: Q 6-10 min. Assessment/Plan 36 Year-old with SIUP at 39 5/7 weeks with ucs with no cx changes in her exam. Us performed with LEILANI of 8.2 - FHR: No sign of metabolic acidosis- Category I - Continuous EFM, toco - Reactive NST. BPP: 10/10 - Symptoms and sign of labor, preeclampsia, kick count discussed with patient, she voiced understanding. All of her questions answered. - Patient was discharged home in stable condition with the appropriate discharge instructions provided. She has been duncan for IOL ain 2 days. I would like patient to have close follow-up with her primary physician or outpatient clinic. Recommend back to triage for worsening symptoms or any other urgent concerns. JONAS PARKS Jul 22, 2017 03:50
== END 2017-07-22 02:55 | disposition home or self-care (01) ==
LOC: L-D 23:50 → OBT 23:50
PROVIDERS: ATTEND Obstetrics & Gynecology
DX: O62.9 Abnormality of forces of labor, unspecified (principal); Z3A.39 39 weeks gestation of pregnancy
CPT/HCPCS: 76818; Z7500; G0463

== ENCOUNTER 2017-07-23 19:15 | Inpatient (IN) | payer MEDICAID ==
[~2017-07-23] VITALS: Ht 154.9 cm; Wt 93.0 kg
[2017-07-23 19:33] VITALS: BP 132/76; PULSE 91; RESP 18
[2017-07-23 19:52] VITALS: Ht 154.9 cm; Wt 93.0 kg
[2017-07-23] MEDS ORDERED: IBUPROFEN 600 MG TAB PO PRN (20:00)
[2017-07-23] MEDS ORDERED: METHYLERGONOVINE 0.2 MG INJ IM PRN (20:00)
[2017-07-23] MEDS ORDERED: OXYTOCIN 30 UNITS/LR 500 ML IV SCH ×3 (20:00→22:30)
[2017-07-23] MEDS ORDERED: LIDOCAINE 1% (MPF) 30 ML INJ INJ PRN (20:00)
[2017-07-23] MEDS ORDERED: CARBOPROST 250 MCG INJ IM PRN (20:00)
[2017-07-23] MEDS ORDERED: OXYTOCIN 30 UNITS/LR 500 ML IV PRN (20:00)
[2017-07-23] MEDS ORDERED: MISOPROSTOL 200 MCG TAB PR PRN (20:00)
[2017-07-23] MEDS ORDERED: OXYCODONE/ACETAMINOPHEN (5/325) TAB PO PRN (20:00)
[2017-07-23] MEDS: LACTATED RINGER'S 1,000 ML IV SCH (20:56)
[2017-07-23 21:20] LABS: BASOPHILS % 0.1 % (0.0-2.0); EOSINOPHILS # 0.1 10^3/ul (0.0-0.5); EOSINOPHILS % 0.6 % (0.0-7.0); HEMATOCRIT 37.9 % (37.0-47.0); HEMOGLOBIN 12.8 g/dl (12.0-16.0); LYMPHOCYTES # 2.9 10^3/ul (0.8-2.9); MEAN CORPUSCULAR HEMOGLOBIN 28.7 pg (29.0-33.0); MEAN CORPUSCULAR HGB CONC 33.8 g/dl (32.0-37.0); MEAN PLATELET VOLUME 10.5 fl (7.4-10.4); MONOCYTE # 0.6 10^3/ul (0.3-0.9); MONOCYTES % 7.4 % (0.0-11.0); NEUTROPHIL # 5.1 10^3/ul (1.6-7.5); NEUTROPHILS % 58.6 % (39.0-77.0); PLATELET COUNT 202 10^3/UL (140-415); RED BLOOD COUNT 4.46 10^6/ul (4.20-5.40); RED CELL DISTRIBUTION WIDTH 12.8 % (11.5-14.5); WHITE BLOOD COUNT 8.7 10^3/ul (4.8-10.8)
[2017-07-23 21:43] LABS: INR 0.9; PROTIME 12.2 Sec (11.9-14.9)
[2017-07-23 21:44] LABS: PARTIAL THROMBOPLASTIN TIME 32.8 Sec (25.0-35.0)
--- NOTE | 2017-07-23 22:56 | HP ---
Date/Time of Note Date/Time of Note DATE: 07/23/17 TIME: 22:53 OB - History Hx of Present Free Text/Dictation Patient is a 36-year-old obese female 2 para 1 with IUP at 39 weeks and 6 days with care with Dr. Garvin, was sent for labor augmentation Patient was seen couple of days ago in triage and was 1 cm/filling contractions and cervical exam shows changed to 3/60/-3. Consistent with early labor Vertex presentation patient desires to proceed with labor augmentation. GBS negative course besides obesity has no other complication : 2 Para: 1 Spontaneous : 0 Therapeutic : 0 Care: Good Care Obstetrical Complications: Other (Maternal obesity) Medical Complications: None Past Family/Social History * Past Medical, Surgical, Family and Obstetric Histories reviewed from chart. OB Admission Exam Vital Signs Vital Signs Vital Signs Date Time Temp Pulse Resp B/P Pulse Ox O2 Delivery O2 Flow Rate FiO2 07/23/17 19:33 98.0 91 18 132/76 Room Air Physical Exam HEENT: WNL Lungs: Clear Abdomen: WNL Reflexes: Normal Cervical Dilatation: 3cm Effacement: 50% Station: -3 Membranes: Intact Heart Rate: 130's Accelerations: Accelerations Present Decelerations: No Decelerations Varibility: Moderate Contractions on Admission: 6-10 Minutes Apart Intensity: Moderate Last 72 hours Lab Results CBC & BMP 07/23/17 20:40 OB Assessment/Plan Other Assessment: IUP at 39 weeks and 6 days Early labor GBS negative Desires labor augmentation Start low-dose Pitocin Anticipate JOAN MICHAEL MD Jul 23, 2017 22:56
[2017-07-24] MEDS: LACTATED RINGER'S 1,000 ML IV SCH ×2 (03:05→08:06)
[2017-07-24] MEDS ORDERED: BUTORPHANOL 2 MG INJ IV PRN ×2 (08:00)
[2017-07-24] MEDS ORDERED: BUTORPHANOL 2 MG INJ ONE (08:01)
--- NOTE | 2017-07-24 12:18 | LDN ---
Date/Time of Note Date/Time of Note DATE: 07/24/17 TIME: 11. Delivery Summary July 242016 Spontaneous vaginal delivery This patient is 36 years old 2 para 1 with estimated date of confinement of July 24, 2017 today she was admitted to the hospital yesterday in early labor progressed to complete dilatation with augmentation. And had a spontaneous vaginal delivery today at 11:01 AM on July 24, 2017. One loop of the tight nuchal cord was lysed and cut. The was female with score of 6 and 1 minute 9 in 5 minutes. The weight of the baby was 7 pounds and 10 ounces. Placenta was intact Secondary degree perineal laceration was repaired estimated blood loss was around 150 to 200 cc Weeks of Gestation 40 Placenta Delivered: Spontaneously Meconium: none Episiotomy: No Perineal laceration: 2 Laceration repair: Repaired with 3-0 chromic catgut Anesthesia type: Local Estimated blood loss: 150 Sponge & Needle done & correct: Yes All needle counts correct: Yes Any foreign bodies felt in the: No Problems: Delivery Information Sex Sex: female Apgars 1 Minute: 6 5 Minute: 9 Suctioning Nose & mouth suctioned at [place]: Yes Delee suction performed: No Umbilical Cord Umbilical cord with: 3 Vessels Cord presentations: nuchal cord Nuchal cord present X: 1 Cord Blood was obtained: No Mother & Baby Disposition Disposition Mom & Baby to Maternity; Good: Yes Mom transferred to: Med/Surg Baby to NICU: No REJI ARMIJO MD Jul 24, 2017 12:18
[2017-07-24 15:00] VITALS: BP 112/57; PULSE 81; RESP 20
[2017-07-24] MEDS: OXYTOCIN 30 UNITS/LR 500 ML IV SCH (15:05)
[2017-07-24] MEDS: LACTATED RINGER'S 1,000 ML IV* SCH (15:05)
[2017-07-24] MEDS ORDERED: OXYTOCIN 30 UNITS/LR 500 ML IV SCH (15:05)
[2017-07-24] MEDS ORDERED: OXYTOCIN 30 UNITS/LR 500 ML IV PRN (15:30)
[2017-07-24] MEDS ORDERED: ACETAMINOPHEN 500 MG TAB PO PRN (15:30)
[2017-07-24] MEDS ORDERED: SENNA/DOCUSATE NA (8.6MG/50MG) TAB PO PRN (15:30)
[2017-07-24] MEDS ORDERED: DIBUCAINE 1% 30 GM OINT PR PRN (15:30)
[2017-07-24] MEDS ORDERED: OXYCODONE/ASPIRIN (4.88/325) TAB PO PRN ×2 (15:30)
[2017-07-24] MEDS ORDERED: METHYLERGONOVINE 0.2 MG INJ IM PRN (15:30)
[2017-07-24] MEDS ORDERED: WITCH HAZEL/GLYCERIN PAD PR PRN (15:30)
[2017-07-24] MEDS ORDERED: IBUPROFEN 600 MG TAB PO PRN (15:30)
[2017-07-24] MEDS ORDERED: BENZOCAINE 20% 56 ML SPRAY TOP PRN (15:30)
[2017-07-24] MEDS ORDERED: LANOLIN 7 GM TUBE TOP PRN (15:30)
[2017-07-24] MEDS ORDERED: CARBOPROST 250 MCG INJ IM PRN (15:30)
[2017-07-24] MEDS ORDERED: MISOPROSTOL 200 MCG TAB PR PRN (15:30)
[2017-07-24] MEDS: IBUPROFEN 600 MG TAB PO SCH ×2 (18:04→23:45)
[2017-07-24 20:15] VITALS: BP 115/63; PULSE 102; RESP 18
[2017-07-25 05:20] VITALS: BP 112/65; PULSE 90; RESP 18
[2017-07-25] MEDS: LACTATED RINGER'S 1,000 ML IV* SCH ×2 (05:32→07:05)
[2017-07-25] MEDS: OXYTOCIN 30 UNITS/LR 500 ML IV SCH ×3 (05:32→07:05)
[2017-07-25] MEDS: IBUPROFEN 600 MG TAB PO SCH ×3 (06:00→18:32)
[2017-07-25 09:00] VITALS: BP 126/78; PULSE 95; RESP 18
[2017-07-25 10:43] LABS: BASOPHILS % 0.2 % (0.0-2.0); EOSINOPHILS % 0.4 % (0.0-7.0); HEMATOCRIT 34.5 % (37.0-47.0); HEMOGLOBIN 11.4 g/dl (12.0-16.0); LYMPHOCYTES # 2.7 10^3/ul (0.8-2.9); LYMPHOCYTES % 28.2 % (15.0-51.0); MEAN CORPUSCULAR HEMOGLOBIN 28.7 pg (29.0-33.0); MEAN CORPUSCULAR VOLUME 86.9 fl (82.0-101.0); MEAN PLATELET VOLUME 9.6 fl (7.4-10.4); MONOCYTE # 0.5 10^3/ul (0.3-0.9); MONOCYTES % 5.6 % (0.0-11.0); NEUTROPHIL # 6.1 10^3/ul (1.6-7.5); NEUTROPHILS % 65.1 % (39.0-77.0); PLATELET COUNT 181 10^3/UL (140-415); RED BLOOD COUNT 3.97 10^6/ul (4.20-5.40); WHITE BLOOD COUNT 9.4 10^3/ul (4.8-10.8)
[2017-07-25 15:45] VITALS: BP 97/55; PULSE 89; RESP 16
--- NOTE | 2017-07-25 16:13 | QN ---
Documentation Comment PPD#1 is stable afebrile No VB +BM +voids VS stable Gen NAD Abd soft NT ND Genitalia No blood at perinium --->discharge plan tomorrow JOSSIE CIFUENTES M.D. Jul 25, 2017 16:13
[2017-07-25 20:00] VITALS: BP 118/63; PULSE 89; RESP 18
[2017-07-25] MEDS ORDERED: INFLUENZA VIRUS VACCINE 0.5 ML SYG IM* ONE (20:00)
[2017-07-26] MEDS: IBUPROFEN 600 MG TAB PO SCH ×3 (00:39→12:23)
[2017-07-26 04:00] VITALS: BP 114/56; PULSE 84; RESP 17
[2017-07-26 08:00] VITALS: BP_SYST 102; BP_SYST 115; BP_DIAS 58; BP_DIAS 65; PULSE 73; PULSE 82; RESP 18
[2017-07-26] MEDS ORDERED: DIPHTH/TET/ACEL PERTUSS (ADULT) 0.5 ML VIAL IM* ONE (09:00)
--- NOTE | 2017-07-26 12:59 | DS ---
Date/Time of Note Date/Time of Note DATE: 07/26/17 TIME: 12:57 Obstetrical Discharge Record Final Diagnosis Final Diagnosis: Term delivered Vaginal Delivery Obstetrical Delivery: Spontaneous Section Primary Indication Post day 2 Doing Well Afebrile Ambulatory Chest Clear Breasts are soft , Nipples are intact Abdomen is soft Fundus is firm Moderate amount of lochia Incision is clean ,No evidence of infection No calf tenderness No ankle edema Current Medications Medications (Trade) Dose Ordered Sig/Hao Route PRN Reason Start Time Stop Time Status Last Admin Dose Admin Lactated Ringer's (Lr) 1,000 ml @ 125 mls/hr Q8H IV 07/23/17 19:52 07/24/17 15:06 DC 07/24/17 08:06 Lidocaine 30 ml 30 ml ONCE PRN INJ EPISIOTOMY/TEARING 07/23/17 20:00 07/24/17 15:07 DC Oxytocin/Lactated Ringer's 500 ml @ 500 mls/hr ONCE POST IV 07/23/17 20:00 07/24/17 15:06 DC 07/24/17 12:11 Oxytocin/Lactated Ringer's 500 ml @ 125 mls/hr POST IV 07/23/17 20:00 07/24/17 15:06 DC 07/24/17 12:38 Ibuprofen (Motrin) 600 mg ONCE PRN PO Mild Pain (Pain Score 1-3) 07/23/17 20:00 07/24/17 15:07 DC Oxycodone/ Acetaminophen 2 tab 2 tab ONCE PRN PO Moderate to Severe Pain (4-10) 07/23/17 20:00 07/24/17 15:07 DC Oxytocin/Lactated Ringer's 500 ml @ 0 mls/hr ONCE PRN IV For Hemorrhage Management 07/23/17 20:00 07/24/17 15:06 DC Methylergonovine Maleate (Methergine) 0.2 mg ONCE PRN IM VAGINAL BLEEDING 07/23/17 20:00 07/24/17 15:07 DC Carboprost Tromethamine (Hemabate) 250 mcg ONCE PRN IM VAGINAL BLEEDING 07/23/17 20:00 07/24/17 15:06 DC Misoprostol 1000 mcg 1,000 mcg ONCE PRN [place] VAGINAL BLEEDING 07/23/17 20:00 07/24/17 15:07 DC Oxytocin/Lactated Ringer's 500 ml @ 0 mls/hr Q0M IV 07/23/17 22:30 07/24/17 15:06 DC 07/23/17 22:58 Butorphanol Tartrate (Stadol) 1 mg Q2H PRN IV PAIN 07/24/17 08:00 07/24/17 15:06 DC Butorphanol Tartrate (Stadol) 2 mg Q2H PRN IV PAIN 07/24/17 08:00 07/24/17 15:06 DC 07/24/17 08:06 Butorphanol Tartrate 2 mg 2 mg STK-MED ONCE .ROUTE 07/24/17 08:01 07/24/17 08:02 DC Oxytocin/Lactated Ringer's 500 ml @ 50 mls/hr Q10H IV 07/24/17 15:05 07/25/17 01:04 DC Lactated Ringer's (Lr) 1,000 ml @ 125 mls/hr Q8H IV* 07/24/17 15:05 07/25/17 18:40 DC Ibuprofen (Motrin) 600 mg Q6 PO 07/24/17 18:00 07/26/17 12:23 Oxycodone/Aspirin (Percodan) 1 tab Q3H PRN PO PAIN LEVEL 1-5 07/24/17 15:30 Oxycodone/Aspirin (Percodan) 2 tab Q3H PRN PO PAIN LEVEL 6-10 07/24/17 15:30 Senna/Docusate Sodium (Senokot-S) 1 tab BID PRN PO CONSTIPATION 07/24/17 15:30 07/25/17 22:17 Witch Aniyah/ Glycerin (Tucks Pads) 1 pad BEDSIDE MEDICATION PRN [place] HEMORRHOID/EPISIOTMY PAIN 07/24/17 15:30 07/24/17 18:05 Benzocaine (Dermoplast Cross) 1 spray BEDSIDE MEDICATION PRN TOP HEMORRHOID/EPISIOTMY PAIN 07/24/17 15:30 07/24/17 18:04 Dibucaine (Nupercainal) 1 applic BEDSIDE MEDICATION PRN [place] HEMORRHOID/EPISIOTMY PAIN 07/24/17 15:30 07/24/17 18:05 Lanolin (Lsh-C-Mhnbin) 1 applic BEDSIDE MEDICATION PRN TOP BEDSIDE FOR TRINA TO NIPPLES 07/24/17 15:30 07/24/17 18:05 Diphtheria/ Tetanus/Acell Pertussis 0.5 ml 0.5 ml ONCE ONCE IM* 07/26/17 09:00 07/26/17 09:01 DC 07/26/17 11:20 Oxytocin/Lactated Ringer's 500 ml @ 0 mls/hr ONCE PRN IV For Hemorrhage Management 07/24/17 15:30 07/25/17 18:40 DC Methylergonovine Maleate (Methergine) 0.2 mg ONCE PRN IM VAGINAL BLEEDING 07/24/17 15:30 Carboprost Tromethamine (Hemabate) 250 mcg ONCE PRN IM VAGINAL BLEEDING 07/24/17 15:30 Misoprostol 1000 mcg 1,000 mcg ONCE PRN [place] VAGINAL BLEEDING 07/24/17 15:30 Oxytocin/Lactated Ringer's 500 ml @ 125 mls/hr Q4H IV 07/24/17 15:05 07/25/17 18:40 DC Ibuprofen (Motrin) 600 mg Q6H PRN PO PAIN 07/24/17 15:30 Acetaminophen (Tylenol Tab) 500 mg Q6H PRN PO PAIN AND OR ELEVATED TEMP 07/24/17 15:30 Influenza Virus Vaccine (Fluzone) 0.5 ml ONCE ONCE IM* 07/25/17 20:00 07/25/17 20:01 DC 07/25/17 13:03 New born is doing well, Breast feeding Condition on Discharge Physical Assessment Voiding: Yes Bowel Movement: Yes Breast: Soft, non-tender Fundus: Firm Calf Tenderness: No Patient Condition: Good REJI ARMIJO MD Jul 26, 2017 12:59
== END 2017-07-26 13:50 | disposition home or self-care (01) | DRG 775 ==
LOC: L-D 19:15 → PP1 07-24 15:09
PROVIDERS: ADMIT Obstetrics & Gynecology; ATTEND Obstetrics & Gynecology
PROC: 10E0XZZ Delivery of Products of Conception, External Approach (ICD-10-PCS; principal; 2017-07-24)
PROC: 0KQM0ZZ Repair Perineum Muscle, Open Approach (ICD-10-PCS; 2017-07-24)
PROC: 3E033VJ Introduction of Other Hormone into Peripheral Vein, Percutaneous Approach (ICD-10-PCS; 2017-07-24)
DX: O69.81X0 Labor and delivery complicated by cord around neck, without compression, not applicable or unspecified (principal); E66.9 Obesity, unspecified; O48.0 Post-term pregnancy; Z3A.40 40 weeks gestation of pregnancy; O70.1 Second degree perineal laceration during delivery; O99.214 Obesity complicating childbirth; Z68.38 Body mass index [BMI] 38.0-38.9, adult; Z37.0 Single live birth
CPT/HCPCS: 85025; 85610; 85730; 86592; 86900; 86901; 87340; 90686; 90715; 99464; J0595; J2590; J7120

== ENCOUNTER 2019-02-05 03:15 | Emergency (ER) | payer MEDICAID ==
[~2019-02-05] VITALS: Ht 154.9 cm; Wt 92.6 kg
[2019-02-05 03:20] VITALS: Ht 154.9 cm; Wt 92.6 kg
[2019-02-05] MEDS ORDERED: FAMOTIDINE 20 MG TAB PO STA (03:39)
[2019-02-05] MEDS ORDERED: BELLADONNA/PHENOBARBITAL TAB PO STA (03:39)
[2019-02-05] MEDS ORDERED: LIDOCAINE/MYLANTA 40 ML BTL PO STA (03:39)
[2019-02-05] MEDS ORDERED: DICYCLOMINE 20 MG INJ IM ONE (04:00)
[2019-02-05] MEDS ORDERED: LORA10CA PO (04:21)
[2019-02-05 05:47] VITALS: BP 109/70; PULSE 84; RESP 18
--- NOTE | 2019-02-05 06:20 | ERD ---
ER Documentation Chief Complaint Chief Complaint diffuse ab pain 12 hrs ago from eating pupusas HPI This is a 38-year-old female with no reported past medical history who is presenting with approximately 12 hours of waxing and waning mild to moderate cramping aching epigastric abdominal pain with nausea but no vomiting. She does not endorse any constipation or diarrhea. She does not endorse any black or bloody or tarry stools. The patient reports eating something this afternoon, after which she started to feel ill. The patient believes that she may have had an allergic reaction with itching and hives. This is when her abdominal pain also began. The patient took a Claritin last night which improved her hives. However, the patient's abdominal pain persisted. The patient's symptoms have been getting better over time, but she wanted to make sure that everything was okay. The patient denies feeling sick recently. The patient denies fever or chills. The patient has had no headache or vision changes. The patient does not endorse neck or back pain. The patient denies lightheadedness or dizziness. The patient has had no chest pain or trouble breathing. The patient has had no focal deficits. The patient has had no weakness or numbness or tingling to the face or extremities. ROS All systems reviewed and are negative except as per history of present illness. Medications Home Meds Reported Medications Loratadine* (Claritin*) 10 Mg Capsule, 10 MG PO DAILY, CAP 02/05/19 Discontinued Reported Medications Multivit/Min/Fol Ac/Iron/Pren* ( S*) 1 Tab Tab, 1 TAB PO DAILY, TAB 04/15/17 Allergies Allergies: Coded Allergies: No Known Allergy (Unverified , 02/05/19) PMhx/Soc Medical and Surgical Hx: pt denies Medical Hx, pt denies Surgical Hx History of Surgery: No Anesthesia Reaction: No Hx Neurological Disorder: No Hx Respiratory Disorders: No Hx Cardiac Disorders: No Hx Psychiatric Problems: No Hx Miscellaneous Medical Probl: No Hx Alcohol Use: No Hx Substance Use: No Hx Tobacco Use: No Smoking Status: Never smoker FmHx Family History: No diabetes Physical Exam Vitals Vital Signs Date Temp Pulse Resp B/P (MAP) Pulse Ox O2 O2 Flow FiO2 Time Delivery Rate 02/05/19 84 18 109/70 100 Room Air 05:47 (83) 02/05/19 98.4 89 18 135/83 100 03:20 (100) Physical Exam Const: No acute distress Head: Atraumatic Eyes: Normal Conjunctiva ENT: Normal External Ears, Nose and Mouth. Neck: Full range of motion. No meningismus. Resp: Clear to auscultation bilaterally Cardio: Regular rate and rhythm, no murmurs Abd: Soft, non distended. Mild epigastric tenderness. No guarding or rebound. Normal bowel sounds Skin: No petechiae or rashes Back: No midline or flank tenderness Ext: No cyanosis, or edema Neur: Awake and alert Psych: Normal Mood and Affect Results 24 hrs Current Medications Medications Dose Sig/Hao Start Time Status Last (Trade) Ordered Route PRN Stop Time Admin Dose Reason Admin Famotidine 20 mg ONCE STAT 02/05/19 DC 02/05/19 (Pepcid) PO 03:39 03:46 02/05/19 03:40 40 ml ONCE STAT 02/05/19 DC 02/05/19 Miscellaneous PO 03:39 03:46 Medication 02/05/19 03:40 (Gi Cocktail (2)) Belladonna/ 2 tab ONCE STAT 02/05/19 DC 02/05/19 Phenobarbital PO 03:39 03:46 () 02/05/19 03:40 Dicyclomine 10 mg ONCE ONCE 02/05/19 DC 02/05/19 HCl IM 04:00 03:56 (Bentyl) 02/05/19 04:01 Procedures/MDM MDM The patient presents for cramping epigastric pain, beginning shortly after eating today. Gastroenteritis is certainly a possibility. Gastritis versus GERD versus PUD are possibilities as well. The patient does endorse symptoms that are potentially concerning for an allergic reaction. The patient's cram ping pain could in fact be related to an allergic reaction as well. The patient took Claritin with resolution of her hives and itchiness. In the emergency department today, the patient was given Pepcid, GI cocktail and Bentyl with continued improvement of her symptoms. The patient does not have any evidence of peritonitis. The patient does not have clinical symptoms concerning for mesenteric ischemia or ischemic colitis. I have low suspicion for viscus perforation. The patient does not have right upper quadrant tenderness, and I have low suspicion for gallstones, cholecystitis or biliary colic. The patient does not have left upper quadrant tenderness. I have low suspicion for pancreatitis. The patient does not have any right lower quadrant tenderness, or periumbilical tenderness. I have low suspicion for appendicitis. The patient does not have suprapubic tenderness. I have decreased suspicion for cystitis. The patient does not have any left lower quadrant tenderness, and I have low suspicion for diverticulosis or diverticulitis. The patient does not have any flank tenderness. The patient does not have gross hematuria. I have decreased suspicion for nephrolithiasis or renal colic. The patient does not have any palpable pulsatile mass or severe abdominal pain radiating to the back. I have low suspicion for aortic aneurysm, dissection or rupture. DISCHARGE Upon reevaluation of the patient, symptoms have improved. No emergent diagnoses were identified. At this time, I feel that the patient stable for discharge. The patient was instructed to follow-up with a primary care physician in 1-3 days. The patient will be given strict precautions with which to return to the emergency department. Prescriptions: Pepcid, Benadryl, Zofran The patient's blood pressure was elevated at greater than 120/80 while in the emergency department. The patient was otherwise stable with no evidence of hypertensive urgency or emergency. The patient does not require admission for blood pressure control. I have discussed with the patient the risks of hypertension. I have instructed the patient to return to the ER for any new or worsening symptoms including chest pain, shortness of breath, headache, blurred vision, confusion, nausea, vomiting or LOC. I have advised the patient to follow up with the primary care physician for outpatient monitoring and treatment for hypertension in 1-3 days. Disclaimer: Inadvertent spelling and grammatical errors are likely due to EHR/dictation software use and do not reflect on the overall quality of patient care. Note that the electronic time recorded on this note does not necessarily reflect the actual time of the patient encounter. Departure Diagnosis: Primary Impression: Abdominal pain Abdominal location: epigastric Qualified Codes: R10.13 - Epigastric pain Additional Impressions: Nausea Allergic reaction Encounter type: initial encounter Qualified Codes: T78.40XA - Allergy, unspecified, initial encounter Condition: Stable Patient Instructions: Abdominal Pain, Allergic Reaction, Other (General), Nausea Additional Instructions: Thank you for for coming to [facility] for your care today. Please ask your nurse or provider if you have questions about your care today and do not leave until all your questions have been answered. Please use any medications given as directed and follow-up with your doctor (or the doctor you were referred to) in the next 1-3 days. If you do not have a primary care doctor you may follow up at the [facility] [place] [facility] (listed below). You may also use motrin and tylenol as needed for fever and/or pain unless instructed otherwise by your provider or nurse. Indications for more urgent follow-up have been discussed, but you may return to the Emergency Department at ANY time for any worrisome or worsening symptoms. If you have abdominal pain, please know that no test or exam you received is perfect and you should follow up within 8 hours for continued pain. If you had any imaging studies today, such as an X-Ray or CT Scan, these studies will be reviewed later by a radiologist. You will be called if there are important findings that were not identified today, so make sure the contact information you provided at registration is correct. If you received any narcotic pain control medicine today, such as Vicodin, Morphine or Dilaudid, your coordination and judgment may be affected for a number of hours. Please do not drive or operate heavy machinery, and you may want someone to assist you at home. If you were given a prescription for narcotic medication, be aware that it is very addictive- use sparingly and only if necessary. PLEASE SEEK FURTHER EVALUATION AND MANAGEMENT AT YOUR DOCTORS OFFICE WITHIN THE NEXT 1-3 DAYS. IT IS YOUR RESPONSIBILITY TO MAKE AN APPOINTMENT FOR FOLOW-UP CARE. IF YOU HAVE A PRIMARY DOCTOR, PLEASE CALL THEIR OFFICE TO SCHEDULE AN APPOINTMENT FOR FOLLOW UP. IF YOU DO NOT HAVE A PRIMARY DOCTOR YOU CAN CALL OUR PHYSICIAN REFERRAL HOTLINE AT IF YOU CAN NOT AFFORD TO SEE A PHYSICIAN YOU CAN CHOSE FROM THE FOLLOWING [facility] CLINICS: [facility] [address] [facility] [address] [facility] [address] [facility] [address] [facility] [address] [facility]. [facility]. [address] MICHAEL BRAVO MD Feb 05, 2019 06:20
[2019-02-05] MEDS ORDERED: ONDA4TAB8 PO (06:21)
[2019-02-05] MEDS ORDERED: BEN25 PO (06:21)
[2019-02-05] MEDS ORDERED: FAMO-96 PO (06:21)
== END 2019-02-05 06:30 | disposition home or self-care (01) ==
LOC: E/R 03:15
DX: T78.1XXA Other adverse food reactions, not elsewhere classified, initial encounter (principal); R11.0 Nausea
CPT/HCPCS: 96372; J0500; Z7502; Z7610

== ENCOUNTER 2019-04-18 06:24 | Emergency (ER) | payer MEDICAID ==
[~2019-04-18] VITALS: Ht 160 cm; Wt 84.6 kg
[~2019-04-18 06:24] MED LIST changes: +BEN25 PO; +FAMO-96 PO; +LORA10CA PO; +METO10TA92 PO; +ONDA4TAB8 PO; -PRENAT PO
[2019-04-18 06:30] VITALS: BP 152/81; PULSE 116; RESP 18; Ht 160 cm; Wt 84.6 kg
[2019-04-18] MEDS ORDERED: METOCLOPRAMIDE 10 MG INJ IV STA (06:56)
[2019-04-18] MEDS ORDERED: SOD CHLORIDE 0.9% 2,000 ML IV STA (06:56)
== END 2019-04-18 08:35 | disposition home or self-care (01) ==
LOC: FTE 06:24
DX: O21.9 Vomiting of pregnancy, unspecified (principal); Z3A.14 14 weeks gestation of pregnancy
CPT/HCPCS: 36415; 80053; 81001; 81025; 83690; 85025; 96361; 96374; J2765; J7030; Z7502